=== PATIENT | female | born 2000 | race Caucasian/White ===

== ENCOUNTER 2024-06-07 14:57 | Outpatient (CLI) | payer MEDICAID, SELFPAY ==
--- NOTE | 2024-06-07 15:00 | CRLHL7_ITS ---
For Patients: As a result of the Century Cures Act, medical imaging exams and procedure reports are released immediately into your electronic medical record. You may view this report before your referring provider. If you have questions, please contact your health care provider. INDICATION: First trimester scan, establish dates. COMPARISON: None. TECHNIQUE: Real-time monet-scale imaging of the pelvis was performed. FINDINGS: Sonographic imaging demonstrates a single living intrauterine gestation. The embryo demonstrates a regular cardiac rate measuring 154 beats per minute. The embryo`s crown-rump length measurement of 4.2 cm corresponds to a gestational age of 11 weeks 1 day with a sonographic due date of 12/26/2024. There is a normal-appearing yolk sac. Subcutaneous edema suspected. Possible thickening of the nuchal translucency. The gestational sac has a normal appearance. There is a 5 x 6 x 18 millimeter inferior perigestational hemorrhage. The amount of fluid within the sac appears appropriate for gestational age. The cervix is closed. The myometrium appears normal. Normal left ovary. Right ovary not visualized. There are no suspicious fluid collections noted in the cul-de-sac. IMPRESSION: Single living intrauterine with sonographic gestational age 11 weeks 1 day and sonographic due date of 12/26/2024. Inferior subchorionic hemorrhage measuring 5 x 6 x 18 millimeters. Suspicion of subcutaneous edema and possible thickening of the nuchal translucency. Genetic workup recommended. Dictated by Hector Rodriguez MD @ 06/08/2024 12:19:18 PM (Electronically Signed)
== END 2024-06-07 14:58 | disposition home or self-care (01) ==
LOC: US 15:01
PROVIDERS: Visit Provider Registered Nurse
DX: Z34.91 Encounter for supervision of normal pregnancy, unspecified, first trimester (principal); O20.9 Hemorrhage in early pregnancy, unspecified; Z3A.11 11 weeks gestation of pregnancy
CPT/HCPCS: 76801; 76817; 86592; 86703; 86704; 86706; 86762; 86787; 86803; 86850; 86900; 86901; 87086; 87340; 87491; 87591

== ENCOUNTER 2024-10-03 14:10 | Outpatient (CLI) | payer OTHER, SELFPAY | END 2024-10-03 14:11 | disposition home or self-care (01) | LOC: NFLDREF 10-06 08:16 | PROVIDERS: Visit Provider Advanced Practice Midwife | DX: Z34.92 Encounter for supervision of normal pregnancy, unspecified, second trimester (principal); Z3A.27 27 weeks gestation of pregnancy | CPT/HCPCS: 86592 ==

== ENCOUNTER 2024-10-17 15:11 | Outpatient (CLI) | payer OTHER, SELFPAY ==
[2024-10-17 23:52] LABS: Bacterial Vaginosis* Negative (Negative); Candida glab/krus NOT DETECTED (No Detected); Candida species DETECTED (No Detected); Trichomonas vaginalis NOT DETECTED (No Detected)
== END 2024-10-17 15:12 | disposition home or self-care (01) ==
PROVIDERS: Visit Provider Midwife
DX: O26.893 Other specified pregnancy related conditions, third trimester (principal); N89.8 Other specified noninflammatory disorders of vagina; Z3A.29 29 weeks gestation of pregnancy
CPT/HCPCS: 81513; 87481; 87491; 87591; 87661

== ENCOUNTER 2024-11-01 12:46 | Outpatient (CLI) | payer OTHER, SELFPAY ==
--- NOTE | 2024-11-01 13:00 | CRLHL7_ITS ---
For Patients: As a result of the Century Cures Act, medical imaging exams and procedure reports are released immediately into your electronic medical record. You may view this report before your referring provider. If you have questions, please contact your health care provider. OB ULTRASOUND DANIEL by LMP: 12/29/2024. GA: 31w, 5d. Single. INDICATION: Excessive growth. COMPARISON: 09/13/2024. CERVIX: Not visualized. POSITIONING: Vertex. AMNIOTIC FLUID: 4.7 cm. PLACENTA: Technique: Transabdominal. PLACENTA POSITION: Posterior. Biometry: BPD: 7.9 cm. 31 w, 4 d, 36%. HC: 29.2 cm. 32 w, 1 d, 24%. AC: 29.5 cm. 33 w, 3 d, 91%. FL: 6.1 cm. 31 w, 4 d, 32%. FL/AC ratio: 20.5 percent. HC/AC ratio: 0.99. EFW: 2012 g. Weight: 4 lbs, 7 oz. age by this US: 32 w, 1 d. DANIEL by this US: 12/26/2024. Percentile by DANIEL: 69%. IMPRESSION: 1. Estimated weight is at the 69th percentile. 2. Abdominal circumference 91st percentile, however there was poor visualization of the abdominal skin surface due to age and these measurements may be less accurate. jS Pederson M.D. Body/Diagnostic Radiologist [email or web address] CASA/elliott gallagher/Dictated by: Sj Pederson MD @ 11/02/2024 8:50:00 AM (Electronically Signed)
== END 2024-11-01 12:47 | disposition home or self-care (01) ==
PROVIDERS: Visit Provider Advanced Practice Midwife
DX: O36.63X0 Maternal care for excessive fetal growth, third trimester, not applicable or unspecified (principal); Z3A.31 31 weeks gestation of pregnancy
CPT/HCPCS: 76816

== ENCOUNTER 2024-12-05 14:18 | Outpatient (CLI) | payer OTHER, SELFPAY | END 2024-12-05 14:19 | disposition home or self-care (01) | PROVIDERS: Visit Provider Advanced Practice Midwife | DX: O99.323 Drug use complicating pregnancy, third trimester (principal); F12.90 Cannabis use, unspecified, uncomplicated; Z3A.36 36 weeks gestation of pregnancy | CPT/HCPCS: 80306; 87081; 87653 ==

== ENCOUNTER 2024-12-12 14:57 | Outpatient (CLI) | payer OTHER, SELFPAY ==
[2024-12-12 15:18] VITALS: BP 117/57; PULSE 85
[2024-12-12 15:19] VITALS: PULSE 94; TEMP 36.7; O2SAT 99
[2024-12-12 16:18] LABS: Amnisure Rom* Negative
[2024-12-12 16:38] LABS: Clue Cells No Clue Cells Seen (None Seen); Trichomonas No Trichomonas Seen (None Seen); Yeast No Yeast Seen (None Seen)
--- NOTE | 2024-12-12 17:23 | PC.OBNST ---
NST Note NST Note Start: 12/12/24 15:08 Freq: ONCE Status: Active Protocol: Document 12/12/24 17:22 ABP (Rec: 12/12/24 17:23 ABP [id number]) NST Note 1 Para (# of births) 0 EDC 12/29/24 Gestational Age In Weeks & Days 37 Weeks & 4 Days Patient Presented with Complaint(s) of Contractions/cramping,Leaking fluid,Decreased movement Reactive Yes RN Viky Dee RN Date 12/12/24 Reactive Yes ANNA Antonio RN Date 12/12/24 OB NST charge Yes Complete NST Note via Write Note Yes The provider's electronic signature indicates the NST is reactive/appropriate for gestational age. *Note to provider: If an addendum is required, open the patient's chart and click on the note under the Nurse/Allied Health tab.
[2024-12-13 14:02] LABS: Strep B DNA Probe POSITIVE (Negative)
[2024-12-13 14:19] LABS: Strep B Susceptibility Needed? Yes
== END 2024-12-12 17:00 | disposition home or self-care (01) ==
LOC: OB OUT 14:58 → OB 14:58
PROVIDERS: Visit Provider Advanced Practice Midwife
DX: O47.1 False labor at or after 37 completed weeks of gestation (principal); Z3A.37 37 weeks gestation of pregnancy
CPT/HCPCS: 59025; 84112; 87081; 87210; 87653; G0463

== ENCOUNTER 2024-12-15 00:40 | Outpatient (CLI) | payer OTHER, SELFPAY ==
[2024-12-15 01:29] VITALS: PULSE 94; O2SAT 99
[2024-12-15 01:34] VITALS: BP 120/71; PULSE 87
[2024-12-15] MEDS: hydrOXYzine pamoate 25 MG CAPSULE 100 MG PO (01:58)
[2024-12-15] MEDS: MORPHINE 10 MG/ML inj IM (01:58)
[2024-12-15 02:00] VITALS: RESP 20; TEMP 36.4
[2024-12-15] MEDS: ONDANSETRON ODT 4 MG TAB PO (02:24)
--- NOTE | 2024-12-15 02:44 | PC.OBNST ---
NST Note NST Note Start: 12/15/24 00:47 Freq: ONCE Status: Active Protocol: Document 12/15/24 02:42 ANDREIA (Rec: 12/15/24 02:44 ANDREIA [id number]) NST Note 1 Para (# of births) 0 EDC 12/29/24 Gestational Age In Weeks & Days 38 Weeks & 0 Days Patient Presented with Complaint(s) of Contractions/cramping Reactive Yes Appropriate for Gestational Age Yes RN Angelic Hobbs, RN Date 12/15/24 Reactive Yes Appropriate for Gestational Age Yes ANNA Min, RN Date 12/15/24 OB NST charge Yes Complete NST Note via Write Note Yes The provider's electronic signature indicates the NST is reactive/appropriate for gestational age. *Note to provider: If an addendum is required, open the patient's chart and click on the note under the Nurse/Allied Health tab.
== END 2024-12-15 02:37 | disposition home or self-care (01) ==
LOC: OB OUT 00:40 → OB 00:42
PROVIDERS: Visit Provider Advanced Practice Midwife
DX: O47.1 False labor at or after 37 completed weeks of gestation (principal); Z3A.38 38 weeks gestation of pregnancy
CPT/HCPCS: 59025; G0463; A9270; J2270

== ENCOUNTER 2024-12-15 22:43 | Inpatient (IN) | payer OTHER, SELFPAY ==
[2024-12-15 22:17] VITALS: BP 119/74; PULSE 85
[2024-12-15 22:18] VITALS: RESP 20; TEMP 36.3
[2024-12-15 23:03] VITALS: BMI 45.5
[2024-12-15] MEDS: fentaNYL 100 MCG/2 ML inj IVP (23:14)
[2024-12-15 23:15] LABS: Basophils Absolute Auto 0.02 K/uL (0.00-0.30); Basophils Percent Auto 0.2 % (0.0-3.0); Eosinophils Absolute Auto 0.05 K/uL (0.00-0.50); Eosinophils Percent Auto 0.5 % (0.0-7.0); Hematocrit 38.8 % (33.0-51.0); Hemoglobin* 12.1 gm/dL (12.0-16.0); Immature Granulocytes Abs Auto 0.08 K/uL (0.00-0.30); Immature Granulocytes Pct Auto 0.8 %; Mean Corpuscular HGB Conc 31 gm/dL (32-36); Mean Corpuscular Hemoglobin 24 pg (26-34); Mean Corpuscular Volume 78 fL (80-100); Monocytes Percent Auto 8.7 % (0.0-11.0); Neutrophils Percent Auto 77.8 % (42.0-72.0); Platelet Count* 214 K/uL (140-440); RDW Coefficient of Variation % 15.6 % (11.5-15.5); Red Blood Count 4.95 m/uL (4.00-5.20); White Blood Count* 9.43 K/uL (4.50-11.00)
[2024-12-15] MEDS: SODIUM CHLORIDE 0.9 % (FLUSH) 10 ML SYRINGE IVF (23:15)
[2024-12-15 23:18] LABS: Slide Review Reflex No
--- NOTE | 2024-12-15 23:18 | P.LDBA_ITS ---
Subjective History of Present Illness Narrative: Tere is a 24 yo at 38 0/7 weeks gestation being admitted to Labor and Delivery for spontaneous onset of labor. She has had prodromal labor on and off since Thursday. She presented last evening for contractions and pain but was sent home with morphine and vistaril after no cervical change with cervix closed. She reports she was able to rest some this morning but then contractions returned. They have progressively become more regular and closer together, now every 5 minutes apart. She feels a lot of the pain in her lower abdomen and her back. She is uncertain of her plan for pain management but is fearful of the Paralyzed feeling with an epidural. She feels she needs something for the pain and wants to try fentanyl at this time. She is worried about the anxiety an epidural may cause her. She is supported in labor by her FianceAlonzo. The room smelled distinctly of THC when I arrived. When partner was out of the room, I asked patient if she had been ingesting or smoking THC/Marijuana. She denies use but reports her partner does heavily use THC. Her full history and physical was dictated by ADAM Hudson on 12/13/2024. Please see this for details Specific Issues/Plans Fikarla: Alonzo (he has a 5 and 7 y/o from prev. relationship) H&P done by Christina Whittington CNM on 12/13/24 #Pre- BMI 36.8, 50lb weight gain at 31.4 weeks Offered nutrition consult-declined Weekly testing starting at 37 weeks? Consider growth US at 32 weeks: 11/01: 69%ile Delivery recommended: elective delivery considered at >39 0/7 weeks.?Will want IOL at 39-40wks. BMI at 37.6 wks 45.5- OB consult vs notify on admission # History of bipolar disorder, self discontinued mood stabilizer 3-4 years ago. Currently doing well, however will establish with psychiatry, referral placed: not seeing anyone at 37 weeks # Possible thickened NT on 1st ultrasound. And possible hydrops; RESOLVED Await final radiology report: Suspicion for subcutaneous edema and possible thickened NT Referral to perinatology for NT: 06/20/2024. Thickened nuchal translucency (>95%ile). M offered early anatomic survey at 16 weeks. Recommend detailed ultrasound exam at 18-20 weeks. Next [facility] appt scheduled on 07/18/2024. [id number]: negative MFM follow up: recommended ASA and surveillance at 37 wks for BMI>35. These recommendations were not in 1st MFM visit. surveillance appts set up 09/13/24 no concerns of thickened NT at this US #Palpitations and near syncope at 27 weeks, RESOLVED seen in [place] ED, records received and reviewed with Tachycardia to 140's with sinus tachycardia, NO SVT noted; BP was low (88/54). All labs WNL Cardiology consult at [place]: Records requested again 11/21 Zio monitor 10/25: Unremarkable with baseline sinus rhythm, no ectopy noted. No further testing indicated. # E cigarette use Trying to quit, continued to use as of 27 weeks # Rubella and varicella nonimmune Vaccinate # Sciatic pain (hx and current). PT referral placed. # Anemia (no records of labs at outside ED visit). RESOLVED Hgb 10.8 at 27.4 weeks, recommended supplementation # Hx back injuries. Anesthesia consult ordered. Consult scheduled for 11/29 # Allergy to penicillin, amoxicillin, and Bactrim. Reports rash and hives as a baby and again as a teenager. #THC use, admitted in ER visit 09/29 Recommend UDS at 36 week visit, none done at [facility] this UDS negative # GBS positive, allergy to penicillin Sensitivity pending Ultrasound: 06/20/24: Thickened nuchal translucency, normal nasal bone. Low risk cell free DNA testing. 07/18/2024: MFM Level II: No anomalies detected but some views were suboptimal. Growth normal, EFW 34%ile, normal fluid. Recommended follow-up anatomy in 3 weeks. Otherwise normal findings. 08/15/24: MFM u/s: Inadequate visualization of lips, multiple heart views, abdominal wall. Repeat in 3 weeks with MFM. 09/13: MFM follow-up on anatomy: Unremarkable anatomy, EFW 74%ile. Recommended testing starting at 37 weeks. 11/01: IMPRESSION: 1. Estimated weight is at the 69th percentile. 2. Abdominal circumference 91st percentile, however there was poor visualization of the abdominal skin surface due to age and these measurements may be less accurate. OB - Problem Based A/P Additional Plan (1) Pain during labor: Status: Acute (2) BMI 45.0-49.9, adult: Status: Acute (3) Electronic cigarette use: Problem details: Questionable THC use Status: Acute (4) Bipolar disorder: Status: Acute (5) Anxiety: Status: Chronic (6) Depression: Status: Chronic (7) Penicillin allergy: Status: Acute (8) Group B Streptococcus carrier, antepartum: Status: Acute (9) Marijuana use during : Problem details: Reported in ED note 09/29 in [place] Status: Acute (10) Obesity complicating : Status: Acute (11) 38 weeks gestation of : Status: Acute Plan ASSESSMENT:? 24 yo at 38 0/7 weeks gestation? complicated by:? # Palpitations and near syncope at 27 weeks, RESOLVED # Pre- BMI 36.8, 50lb weight gain at 31.4 weeks # History of bipolar disorder with Anxiety/Depression # Possible thickened NT on 1st ultrasound, RESOLVED # E cigarette use # Rubella and varicella nonimmune # Sciatic pain (hx and current). # Anemia (no records of labs at outside ED visit). RESOLVED # Hx back injuries. Anesthesia consult ordered. # Allergy to penicillin, amoxicillin, and Bactrim. Reports rash and hives as a baby and again as a teenager. # THC use, admitted in ER visit 09/29 with negative UDS 12/05/2024 Labor type: Spontaneous, Early labor? Category 2 FHR pattern.?? Labor complicated by: Cat II pattern? GBS positive, sensitivities not resulted.? ? PLAN:? 1. Routine intrapartum cares as ordered. Continue with expectant management? 2. Monitoring per policy, continuous with Cat II tracing? 3. Uncertain of pain plan but considering epidural. Candidate for analgesia of choice when desired.?? 4. Patient encouraged to reposition and ambulate to promote physiologic labor and .? 5. GBS prophylaxis initiated for GBS positive status. Will treat with antibiotics per protocol. Discussed sensitivities and allergy. Could try Ancef or use Vancomycin. She prefers to avoid any chance of allergy and use Vancomycin. She is aware peds will recommend she stay for 36-48 hours after delivery. 6. Current BMI of 45.5 on admission. MD inclusion manager, Dr. Sarmiento, notified of patient admission. She has not had an OB consult this . 7. THC use reported this and heavy odor on admission. Discussed THC use and UDS with patient. 8. Anticipate ? Delivery/Labor/Induction Plan Plan: expectant management OB Exam Physical Exam Vital signs: Temp Pulse Resp BP 97.4 F L 85 20 119/74 12/15/24 22:18 12/15/24 22:17 12/15/24 22:18 12/15/24 22:17 Narrative: Vitals Reviewed Constitutional:? Alert and oriented x3 HEENT:? Normocephalic, atraumatic Neck:? Supple Lungs:? Clear to auscultation bilaterally Heart:? Regular rate and rhythm, no murmur, rub or gallop Abdomen:? Soft, nontender, and gravid. Vertex by Jeferson's, confirmed with cervical exam. Extremities:? No edema or erythema Cervix: 4.5 cm/60%/-2 station/vertex with bulging bag of water per RN NST: 135 bpm/moderate variability/15x15 accelerations/early and late decelerations present/contractions every 1-4 minutes Detailed Labor and Delivery Exam Patient Gravid: Yes
[2024-12-15] MEDS: LACTATED RINGERS 1000 ML 1,000 ML 100 ML IV (23:40)
[2024-12-16] VITALS (61 sets, daily range): BP systolic 84–143; BP diastolic 50–81; PULSE 65–98; RESP 16–17; TEMP 36.3–36.8; O2SAT 91–100
[2024-12-16] MEDS: fentaNYL 100 MCG/2 ML inj IVP (00:32)
[2024-12-16 01:11] LABS: Amphetamine Screen Urine Negative (Negative); Barbiturate Screen Urine Negative (Negative); Benzodiazepines Screen Urine Negative (Negative); Cannabinoid Screen Urine Negative (Negative); Cocaine Screen Urine Negative (Negative); Methadone Screen Urine Negative (Negative); Methamphetamines Screen Urine Negative (Negative); Opiate Screen Urine POSITIVE (Negative); Oxycodone Screen Urine Negative (Negative); Phencyclidine Screen Urine Negative (Negative); Tricyclic Antidepressant Urine Negative (Negative)
[2024-12-16] MEDS: ROPIVACAINE 0.2% 100 ml 100 ML 12 MG EPIDURAL (02:19)
[2024-12-16] MEDS: LIDOCAINE 2% (PF) 5 ML VIAL EPIDURAL (02:19)
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
[2024-12-16] MEDS: LACTATED RINGERS 1000 ML 1,000 ML 100 ML IV (02:42)
[2024-12-16] MEDS: OXYTOCIN 30 unit/500 ML in NS 30 UNIT/500 ML BAG 300 UNIT IVPB (05:26)
--- NOTE | 2024-12-16 05:54 | W.PM.OBVAGDE ---
OB Procedure Vag Delivery Mother Details Mother Details: The patient is a 24 year-old, 1, Para 0, admitted on 12/15/24 at 38 0/7 weeks gestation. : 1 Para: 1 Weeks Gestation: 38.1 Admission Date: 12/15/24 Additional Details Amniotic Membrane Rupture Date: 12/16/24 Amniotic Membrane Rupture Time: 04:37 Amniotic Membrane Fluid Description: Meconium Stained (Moderate mec) Analgesia/Anesthesia Type: Epidural Waterbirth: No Pitcoin: Yes ([facility] only) Intrapartal Events: Mod/Heavy Meconium Fluid Labor Onset: 22:00 Complete: 04:15 Pushin:45 Heart: heart tones during second stage were category II with variable decelerations during contractions and return to baseline between. Moderate variability throughout the 2nd stage of labor. Delivery Details Delivery Date: 12/16/24 Delivery Time: 05:12 Route of delivery: Infant Gender: Male Infant Viability: Alive; Heart Rate Present Position at Delivery: OA Delivery Details: Patient was admitted for spontaneous and progressed normally. She utilized an epidural for pain management. AROM at 0437 with moderate med stained fluid. Patient was complete at 0415 and pushing at 0445. of a viable male at 0512 in semi-reclined position on the bed. Vertex delivered OA. Nuchal cord x1, reduced at perineum. No shoulder. Body delivered easily and without incident. Infant passed to mothers abdomen with a weak cry, stimulated and dried with mouth suction. Cord was clamped and cut at > 5 minutes. APGARS were 7 at one minute and 8 at five minutes respectively. Taken to the warmer after 5 minutes to assess by RN. He was suctioned and and dried by RN and returned to mom. Intact placenta with a 3 vessel cord delivered spontaneously at 0520, trailing membranes extracted with ring forceps. Fundus firm. Vaginal 2nd degree, shallow, identified and repaired in typical fashion. QBL 250 cc. Red rubber catheter used to empty bladder for 200 cc. Mother and baby stable; mother plans to breastfeed. weight pending. GBS was treated with 1 dose of Vancomycin, total time from AROM to delivery was 35 minute. 1 Minute Interval Total Score: 7 5 Minute Interval Total Score: 8 Additional Details Shoulder Dystocia: No Placenta Delivery Time: 05:20 Placental Delivery Description: Spontaneous Delivery repair: Vicryl Procedure Done: Global Blood Loss: 250 Laceration: Vaginal - 2nd Degree Blood Loss Measurement Type: QBL Bakri Used: No Sponge/Need Count Correct: Yes Cord Vessel Description: 3 Vessels, Nuchal Cord, Loose and Reduced Event Summary Status: Mother and infant were stable after delivery. Disposition: floor
[2024-12-16] MEDS: IBUPROFEN 600 MG TABLET PO ×3 (06:07→18:23)
[2024-12-16] MEDS: ACETAMINOPHEN 500 MG TABLET 1000 MG PO ×3 (06:07→18:24)
[2024-12-16 08:48] LABS: Hematocrit 31.5 % (33.0-51.0); Hemoglobin* 9.9 gm/dL (12.0-16.0); Mean Corpuscular HGB Conc 31 gm/dL (32-36); Mean Corpuscular Hemoglobin 25 pg (26-34); Mean Corpuscular Volume 78 fL (80-100); Platelet Count* 186 K/uL (140-440); Red Blood Count 4.02 m/uL (4.00-5.20); White Blood Count* 12.75 K/uL (4.50-11.00)
[2024-12-16 08:51] LABS: Slide Review Reflex No
[2024-12-16 08:58] LABS: Alanine Aminotransferase* 16 U/L (4-35); Aspartate Amino Transferase* 16 U/L (12-35); Blood Urea Nitrogen* 9 mg/dL (5-24); Creatinine* 0.6 mg/dL (0.5-1.5); Est. Creatinine Clearance* 143.02; Estimated Glomerular Filt Rate 130 ml/min
[2024-12-16] MEDS: DOCUSATE SODIUM 100 MG CAPSULE PO (12:24)
--- NOTE | 2024-12-16 13:11 | PM.ANPOST ---
Post Anesthesia Note Post Anesthesia Note Patient seen: Inpatient Respiratory Status: adequate Cardiovascular Status: adequate Mental Status: baseline Pain: adequate Temp: baseline Anesthetic awareness: N/A Complications: none Follow care: none
[2024-12-16] MEDS: LANOLIN CREAM 1 APPLIC TOPICAL (18:29)
[2024-12-17 00:21] VITALS: BP 109/76; PULSE 86; RESP 20; TEMP 36.4; O2SAT 98
[2024-12-17] MEDS: ACETAMINOPHEN 500 MG TABLET 1000 MG PO ×3 (00:23→17:47)
[2024-12-17] MEDS: IBUPROFEN 600 MG TABLET PO ×2 (00:24→17:47)
[2024-12-17 05:00] VITALS: BP 115/82; PULSE 76; RESP 20; TEMP 36.6; O2SAT 98
[2024-12-17 09:36] VITALS: BP 112/79; PULSE 76; RESP 18; TEMP 36.5; O2SAT 98
--- NOTE | 2024-12-17 09:42 | PM.OBPNVD1 ---
Documented by User: Jossie Walters 12/17/24 10:12 OB - PN:Subj Subjective Date Seen: 12/17/24 Patient comments OB post-: pain well controlled, tolerating diet and flatus present infant status: and doing well feeding status: exclusively Narrative: Midson is a 24 yo day 1 post status , Patient sitting on bed infant. Partner in room, pacing (noted to be his baseline) and supportive. States she is feeling overall well. Experiencing some uterine cramping, mostly while . Pain medications available offer relief. Mood positive and stable, denies any emotional concerns at this time. Reports nipple pain, cracking. OB - PN: Obj Exam Physical Exam: Vital signs: Temp Pulse Resp BP Pulse Ox O2 Del Method 97.7 F 76 18 112/79 98 Room Air 12/17/24 09:36 12/17/24 09:36 12/17/24 09:36 12/17/24 09:36 12/17/24 09:36 12/17/24 09:36 Constitutional: Constitutional: no acute distress and morbidly obese (BMI>40, noted 50# weight gain over ) Routine HEENT Exam: Head: Present normal inspection Eye: Present normal appearance ENT: Present mucous membranes moist and nares patent Routine Chest/Breast/Axilla Exam: Comments: Chest symmetrical. . Nipple redness, cracking. Routine Abdominal Exam: Fundus: Present firm Comments: U-1, abdomen rounded, soft non-tender Routine Exam: Patient deferred: perineal exam Routine Extremities Exam: Extremities: Present full ROM, normal capillary refill and pulses intact Detailed Extremities Exam: Vascular: Peripheral pulses: 2+: radial (L), 2+: radial (R), 2+: dorsalis pedis (L) and 2+: dorsalis pedis (R) Routine Skin Exam: Skin: Present dry, normal color and warm Routine Neurological Exam: Neurological: Present alert, oriented X3 and moving all extremities Detailed Neurological Exam: Coma Scale: Eye Opening: Spontaneous (4) Verbal Response: Orientated (5) Motor Response: Obey commands (6) [place] Coma Scale Total: 15 Routine Psychiatric Exam: Psychiatric: Present normal affect, normal thought process and cooperative Wound Management: Comments: Declined suture assessment (vaginal) OB - PN: Obj Data Labs Labs: Laboratory Results - last 24 hr 12/15/24 23:12 Antibody Screen NEGATIVE OB - PN: A/P Delivery Assessment and Plan (1) BMI 45.0-49.9, adult: Status: Acute (2) Electronic cigarette use: Problem details: Questionable THC use Status: Acute Assessment and Plan: Discussed safety in home for (3) Bipolar disorder: Status: Acute Assessment and Plan: Discussed considering restarting bipolar medications. Patient declines medications Reviewed PPD, 2 week follow up, to call prior to that with concerns/coping. (4) Anxiety: Status: Chronic Assessment and Plan: Discussed considering restarting bipolar medications. Patient declines medications Reviewed PPD, 2 week follow up, to call prior to that with concerns/coping (5) Depression: Status: Chronic Assessment and Plan: Discussed considering restarting bipolar medications. Patient declines medications Reviewed PPD, 2 week follow up, to call prior to that with concerns/coping (6) Marijuana use during : Problem details: Reported in ED note 09/29 in [place] Status: Acute Assessment and Plan: Discussed safe environment for infant. Awareness of effects of use and care. (7) Anemia: Status: Acute Assessment and Plan: resume iron therapy (8) care and examination: Status: Acute Assessment and Plan: See above for exam report. Plans for discharge tomorrow (12/18), and 2 week follow up in clinic unless concerns arise before then. (9) Lactating mother: Status: Acute Assessment and Plan: infant, encourage services PRN. Plan day: 1 Plan: routine care Comments: Anticipate DC to home tomorrow Documented by User: Gina Dodge CNM 12/17/24 10:17 OB - PN:Subj Subjective Narrative: Midson is a 24 yo day 1 post status , Patient sitting on bed . Partner in room, pacing (noted to be his baseline) and supportive. States she is feeling overall well. Experiencing some uterine cramping, mostly while . Pain medications available offer relief. Mood positive and stable, denies any emotional concerns at this time. Reports nipple pain, cracking. She has no new complaints.? Urinary output is adequate and she is voiding without difficulty.? Has a good appetite, is tolerating a general diet, is passing flatus, and has had a bowel movement.? Has small amount of rubra lochia.? She is ambulating well. OB - PN: Obj Exam Routine Respiratory Exam: Respiratory: Present CTA bilaterally Routine Cardiovascular Exam: Cardiovascular: Present RRR Detailed Neurological Exam: Coma Scale: [place] Coma Scale Total: 15 OB - PN: A/P Delivery Assessment and Plan (1) BMI 45.0-49.9, adult: Status: Acute (2) Electronic cigarette use: Problem details: Questionable THC use Status: Acute (3) Bipolar disorder: Status: Acute (4) Anxiety: Status: Chronic (5) Depression: Status: Chronic (6) Marijuana use during : Problem details: Reported in ED note 09/29 in [place] Status: Acute (7) Anemia: Status: Acute (8) care and examination: Status: Acute (9) Lactating mother: Status: Acute
--- NOTE | 2024-12-17 15:07 | PM.OBDSVD1 ---
DS: Providers Provider Date Seen: 12/17/24 Date of admission: 12/15/24 22:43 Primary care physician: Not a Local Provider Admitting Clinician: Jocelyn Benitez CNM Attending Physician on discharge: Jocelyn Benitez CNM DS: Diagnosis Discharge Diagnosis (1) care and examination: Status: Acute (2) Lactating mother: Status: Acute (3) BMI 45.0-49.9, adult: Status: Acute (4) Anemia: Status: Acute (5) Electronic cigarette use: Status: Acute Problem details: Questionable THC use (6) Bipolar disorder: Status: Acute (7) Anxiety: Status: Chronic (8) Depression: Status: Chronic Exam Narrative: Exam Narrative: See exam from this morning (12/17/24). No changes since that time. Patient was originally planning on a discharge time for tomorrow, although decided once infant was clear to DC this afternoon, she preferred to DC at the 36 hour adina as well Const: Vital Signs, click to edit/add: Vital Signs - 24 hr 12/16/24 16:13 12/16/24 20:22 12/17/24 00:21 Temperature 98.1 F 97.4 F L 97.6 F Pulse Rate [Pulse Oximeter] 94 74 86 Respiratory Rate 17 16 20 Blood Pressure [Le ft Arm] 101/67 111/70 109/76 Pulse Oximetry 98 98 Oxygen Delivery Me thod Room Air 12/17/24 05:00 12/17/24 09:36 Temperature 97.9 F 97.7 F Pulse Rate [Pulse Oximeter] 76 76 Respiratory Rate 20 18 Blood Pressure [Le ft Arm] 115/82 112/79 Pulse Oximetry 98 98 Oxygen Delivery Me thod Room Air Room Air Documenting provider has reviewed patient's vital signs: yes OB - DS: Summary Hospital Course Hospital Course: Tere is a 24 year old G 1 P 1 at 1 day PP that was admitted to the Center on 12/15/24 for Spontaneous labor. She had an uncomplicated vaginaldelivery. She delivered a viable male . She is breast feeding. the patient has done well. Peripartum Data Infant delivery method: Vaginal Laceration description: Vaginal - 2nd Degree complications: none [place]ard Infant Gender: Male Discharge Plan: Home Status at Discharge Functional status at discharge: independent ambulation Overall status at discharge: patient is progressing back to baseline Time Spent with Patient Time attestation: Total time spent providing and/or coordinating discharge services: Time spent: Less than 30 minutes Discharge Plan Discharge Disposition: Home, Self-Care Date of Admission: 12/15/24 22:43 Attending Provider on Discharge: Gina Dodge Primary Care Provider: Provider,Not a Local Condition: Stable Anticipated Discharge Date/Time: 12/17/24 17:00 Discharge Medications: New docusate sodium 100 mg Capsule 100 mg PO DAILY Qty: 90 0RF Rx Instructions: Take 1-2 tablets daily as needed for constipation. ferrous sulfate 325 mg (65 mg iron) Tablet 325 mg PO Q48H Qty: 60 0RF ibuprofen 600 mg Tablet 600 mg PO Q6H PRNQty: 60 0RF Continued with DHA-Folic Acid 400-32.5 mcg-mg tablet,chewable 1 tab PO DAILY (DME) breast pump Device See Rx Instructions .ROUTE .MEDSUPPLY Qty: 1 0RF Rx Instructions: As directed Discontinued aspirin 81 mg tablet,chewable 81 mg PO QDAY ferrous sulfate 325 mg (65 mg iron) tablet 325 mg PO Q OTHER DAY Qty: 90 1RF Unisom (doxylamine) 25 mg tablet 25 mg PO QHS PRN Discharge Orders: Discharge Order (Routine); Ordered 12/17/24 Ordered By: Gina Dodge Patient Education: OB Vaginal/Breast Feeding Additional Instructions: Discharge instructions were reviewed with the patient including signs and symptoms of infection and home going medications.? Lifting Restrictions: 20 pounds for 6? weeks? ?? Do not drive while taking narcotic pain meds.? Off Work or School for 6 weeks.? ?? Symptoms to report to doctor:? -Bleeding that saturates more than one pad per hour? -Passing clots larger than the size of a golf ball? -Pain not relieved by prescribed medication? -Fever above 100.4 degrees Fahrenheit? -A foul vaginal odor? -Difficulty in emotions, mood and functions? -Thoughts of hurting yourself and/or ? -Painful, reddened area in your breast? -Any drainage, redness or tenderness in your IV/epidural site? -Severe headache that doesn't improve after taking medications? -Changes in vision, including temporary loss of vision, blurred vision, and/or light sensitivity? -Upper abdominal pain (usually under ribs on the right side)? -Decrease in urination or painful, frequent urinating? -Chest pain? -Shortness of breath? -Tenderness or pain with redness and/swelling in the calf(s) of your leg? ?? Follow Up in clinic in 2 and 6 weeks.? ?? consultation services are available to all mothers and babies for the first year after delivery.? To make an appointment, please call [phone].? Activity Level: No Restrictions Discharge Diet: Regular Follow Up Appointments: [facility] [Provider Group] Provider,Not a Local [Primary Care Provider] - Forms: MyHealth Info Instructions
[2024-12-17] MEDS: MEASLES,MUMPS,RUBELLA VACC/PF 1 DOSE INJ 1 EACH SUBCUT (17:55)
[2024-12-17 18:00] VITALS: BP 113/81; PULSE 98; RESP 17; TEMP 36.5; O2SAT 98
== END 2024-12-17 18:39 | disposition home or self-care (01) | DRG 560 ==
LOC: OB OUT 22:44 → OB 22:44
PROVIDERS: Midwife; Admitting Provider Advanced Practice Midwife; Visit Provider Advanced Practice Midwife
DX: O99.824 Streptococcus B carrier state complicating childbirth (principal); O77.0 Labor and delivery complicated by meconium in amniotic fluid; O70.1 Second degree perineal laceration during delivery; O99.02 Anemia complicating childbirth; D64.9 Anemia, unspecified; O99.344 Other mental disorders complicating childbirth; F41.9 Anxiety disorder, unspecified; F31.9 Bipolar disorder, unspecified; O99.324 Drug use complicating childbirth; F12.90 Cannabis use, unspecified, uncomplicated; O99.334 Smoking (tobacco) complicating childbirth; F17.290 Nicotine dependence, other tobacco product, uncomplicated; O99.214 Obesity complicating childbirth; Z88.0 Allergy status to penicillin; Z3A.38 38 weeks gestation of pregnancy; Z37.0 Single live birth
CPT/HCPCS: 01967; 36415; 59025; 80306; 82565; 84450; 84460; 84520; 85025; 85027; 86592; 86850; 86900; 86901; G0463; A9270; J2270; J2795; J3010; J3370; J7030; J7120